=== PATIENT | male | born 1995 | race Hispanic/Latino ===

== ENCOUNTER 2019-09-21 17:12 | Emergency (ER) | payer SELFPAY ==
[2019-09-21] MEDS ORDERED: AMOXicillin 250 MG CAP ONE (17:40)
[2019-09-21] MEDS ORDERED: HYDROcodone/Acetaminophen 10/325 mg Tablet ONE (17:40)
== END 2019-09-21 17:52 | disposition home or self-care (01) ==
LOC: BURERS 17:12
DX: K02.9 Dental caries, unspecified (principal); F17.210 Nicotine dependence, cigarettes, uncomplicated
CPT/HCPCS: 99282